=== PATIENT | female | born 1980 | race Caucasian/White ===

== ENCOUNTER 2025-04-13 22:15 | Emergency (ER) | payer OTHER, SELFPAY ==
[2025-04-13 22:17] VITALS: BP 199/109
[2025-04-13 22:37] LABS: Hematocrit 44.0 % (37.0-47.0); Hemoglobin 14.8 g/dL (12.0-16.0); Mean Corp Hgb Conc. 33.6 g/dL (33.0-37.0); Mean Corpuscular Volume 81.3 fL (81.0-99.0); Nucleated Red Blood Cells % 0 %; Platelet Count 400 10^3/uL (130-400); Red Cell Dist. Width 13.1 % (11.5-14.5)
[2025-04-13 22:46] LABS: HCG, Serum Qualitative Screen Negative
[2025-04-13 22:51] LABS: ALT (SGPT) 19 U/L (0-35); AST (SGOT) 21 U/L (14-36); Albumin 5.1 g/dl (3.5-5.0); Alkaline Phosphatase 64 U/L (38-126); Blood Urea Nitrogen 16 mg/dl (7-17); Calcium 10.9 mg/dl (8.4-10.2); Carbon Dioxide 23 mmol/L (22-30); Chloride 106 mmol/L (98-107); Glucose 102 mg/dl (70-99); Potassium 4.1 mmol/L (3.5-5.1); Sodium 137 mmol/L (135-145); Total Protein 8.0 g/dl (6.3-8.2); eGFR > 60.00
[2025-04-13 23:03] LABS: Troponin I < 0.012 ng/ml
[2025-04-13 23:21] VITALS: BP 160/110
[2025-04-13 23:36] VITALS: BMI 29.2
[2025-04-14 00:01] VITALS: BP 160/106
[2025-04-14 01:00] VITALS: BP 151/100
[2025-04-14] MEDS: TYLENOL 650 MG PO (01:42)
[2025-04-14 02:00] VITALS: BP 147/100
[2025-04-14 02:22] LABS: D-Dimer < 0.27 ug/mlFEU (0.00-0.50)
--- NOTE | 2025-04-14 03:50 | ED.GENMED ---
History of Present Illness
General
Chief Complaint: Chest Pain
Source: patient
Time Seen by Provider: 04/13/25 23:25
Nursing documentation reviewed up to this point in time: agreed with
History of Present Illness
History of Present Illness:
Note:
CHIEF COMPLAINT(S)
- Dizziness with a feeling of impending faintness.
- Tremendous swelling in feet and legs.
- Sore and heavy chest feeling upon breathing.
- Burning sensation at the tips of the toes.
- Lingering white coating on the tongue.
HISTORY OF PRESENT ILLNESS
The patient is a 44-year-old female presenting with episodic dizziness, accompanied by a sensation of imminent fainting, which she first experienced over the March 24 holiday while at a [employer] in an air-conditioned space. At that time, she
noted profuse sweating and had to wash her face with water to relieve the symptoms.
Since that incident, she reports 'tremendous' swelling of her feet and legs which lasted several days. She describes persistent tenderness and heaviness in her chest that has recently worsened. This chest discomfort feels gianna to post-exercise
soreness but does not correlate with breathing difficulty. The episodes began around the 24 of March, subsided, and have since recurred in the last few days.
There is also a history of persistent white and fur-like coating on her tongue, for which eradication attempts have been unsuccessful despite her previous antibiotic use. Notably, she denies fever at present but recalls periodic fevers and describes
burning of her toes as another troubling symptom. She has a known history of asthma, typically exacerbating with exercise or environmental changes, but has intermittently used her inhaler more frequently since March 24 due to breathing issues.
The patient also mentions a speculative concern about a possible infection transmitted from her dogs prior staphylococcal infection.
PHYSICAL EXAM
General: Alert, no acute distress.
Skin: Warm, dry.
Head: Normocephalic, atraumatic.
Neck: Supple, trachea midline.
Eye, Ears, Nose, Mouth, and Throat: Oral mucosa moist, with a noted white coating on the tongue.
Cardiovascular: Normal peripheral perfusion, No edema.
Respiratory: Respirations are non-labored.
Gastrointestinal: Abdomen nondistended.
Back: Normal range of motion, Normal alignment.
Musculoskeletal: Normal range of motion, normal strength.
Neurological: Alert and oriented to person, place, time, and situation, No focal neurological deficit observed.
Psychiatric: Cooperative, appropriate mood & affect.
PLAN
The patient is to undergo a D-dimer test to assess the likelihood of a blood clot, with results pending.
DIFFERENTIAL DIAGNOSIS
The Differential Diagnosis includes, in no particular order and is not limited to:
- Hypotension-induced dizziness
- Peripheral edema of unknown etiology
- Asthma exacerbation
- Glossitis or oral candidiasis
- Bronchitis
- Pulmonary embolism
- Heart failure
- Staphylococcal infection
- Vasovagal syncope
- Electrolyte imbalance
CARE-UPDATE
04/14/25 - 03:02
Patient was reassessed, and test results were reviewed. Blood clot test, troponin, and other labs are normal, suggesting the issue is unlikely related to a blood clot, heart problem, systemic infection, or electrolyte imbalance. Symptoms might be
attributable to RA. Patient reports difficulty taking deep breaths. A one-time dose of a medication (presumably a steroid) was administered, with instructions for a wash and spit technique. A prescription for a continuation of this treatment will be
provided if effective, and the patient does not require a new puffer prescription as they already have one.
Disposition:
SUMMARY OF ENCOUNTER
The patient, a 34-year-old female, presented with chest pain and several other complaints, including a white coating on her tongue consistent with thrush. She reported some relief from the chest pain with the use of her inhaler. Chest X-ray and EKG
results were negative, and lab work was essentially normal. A D-dimer test ruled out blood clots, allowing for a low-risk assessment for this condition.
DISPOSITION
Discharged to home.
ASSESSMENT
The patient presents with symptoms suggestive of thrush and chest pain, which may be attributed to possible asthma exacerbation. The negative D-dimer test suggests low risk for pulmonary embolism.
PLAN
The patient will follow up with her family doctor for further evaluation of chest pain.
INDEPENDENT REVIEW OF LABS AND INTERPRETATION OF TESTS
- My independent review of the chest X-ray is negative for acute findings.
- My independent review of the EKG is normal.
- My independent review of lab work, including D-dimer, indicates a negative result, suggesting low risk for blood clots.
MEDICATION RECONCILIATION
The patient was given a prescription for nystatin for oral thrush treatment.
MEDICAL DECISION MAKING
- Chronic conditions affecting care: asthma.
- DDx list: Hypotension-induced dizziness, Peripheral edema of unknown etiology, Asthma exacerbation, Glossitis or oral candidiasis, Bronchitis, Pulmonary embolism, Heart failure, Staphylococcal infection, Vasovagal syncope, Electrolyte imbalance.
- Data:
- Category 1: Reviewed EKG, radiology study, and lab tests showing negative findings.
- Category 2: Clinical information sourced from patients self-reported symptoms.
- Risk: Prescription medication was prescribed for thrush (nystatin). Consideration of Admission/Observation: Escalation of care including admission/observation was considered given the complexity and risk of the patients presenting complaint, exam
findings, and/or their underlying comorbidities. However, ultimately, I feel the patient is safe for outpatient management with close follow-up. Reasoning: Work-up is reassuring, does not reveal any acute life/organ-threatening processes, patients
symptoms well controlled upon reevaluation, reexamination is reassuring, vitals are stable, patient agreeable with discharge, reliable for follow-up.
DIAGNOSIS
- Oral Candidiasis (Thrush) ICD-10: B37.0
- Chest Pain, unspecified ICD-10: R07.9
Past History
Past History
ED Past Medical History: Asthma, CVA (? 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
ED Past Surgical History: Gynecological (Uterine ablation, Tubel)
Social History
Tobacco: Non-smoker
Alcohol: Occasional
Personal:
Living: with family
Employment: Employed (Self-employed)
Family History
Family History: Other (Noncontributory)
Phy Exam
Physical Exam
Physical Exam:
.
Scores
Heart Score for Chest Pain Patients
STEMI patient?: No
History: Slightly or Non-Suspicious
ECG: Normal
Age: >45 - <65 years
Risk Factors: No Risk Factors
Troponin: </= Normal Limit
Heart Score for Chest Pain Patients: 1
Heart Score Risk: 2.5% MACE over next 6 weeks
Course
Orders/Labs/Results
Orders:
Orders
04/13/25 22:24
Electrocardiogram (*1) Urgent
Reason for Study: Chest Pain
EKG- Treatment ONCE
Test Result ONCE
04/13/25 22:29
Complete Blood Count/With Diff Urgent
04/13/25 22:30
Comprehensive Metabolic Panel Urgent
HCG, Serum Qualitative Screen Urgent
NT-proBNP Urgent
Troponin I Urgent
04/13/25 23:32
Add On - Microbiology Urgent
Tests Added?: ddimer
04/14/25 01:02
D-Dimer Urgent
04/14/25 01:17
Acetaminophen [Tylenol] 650 mg PO NOW STA
04/14/25 03:10
CR Chest - 2 Views Urgent
Comment:
Reason For Exam: cp
04/14/25 03:26
Nystatin Suspension [Mycostatin Oral Suspension] 5 ml PO NOW STA
04/14/25 08:00
Nystatin Suspension [Mycostatin Oral Suspension] 5 ml PO QID
Abnormal Lab Results
04/13/25 04/13/25
22:29 22:30
RBC 5.41 H 10^6/uL
(4.20-5.40)
Absolute Monos (auto) 0.9 H 10^3/uL
(0.1-0.6)
Glucose 102 H mg/dl
(70-99)
Calcium 10.9 H mg/dl
(8.4-10.2)
Albumin 5.1 H g/dl
(3.5-5.0)
04/13/25 22:29
04/13/25 22:30
Vital Signs
Initial and Last Documented VS:
Initial Vital Signs
Temp Pulse Resp BP Pulse Ox
98.3 F 124 20 199/109 98
04/13/25 22:17 04/13/25 22:17 04/13/25 22:17 04/13/25 22:17 04/13/25 22:17
Last Documented Vital Signs
Temp Pulse Resp BP Pulse Ox
98.3 F 87 14 151/99 98
04/13/25 22:17 04/14/25 04:16 04/14/25 04:16 04/14/25 04:16 04/14/25 04:16
*Pulse Oximetry
SaO2: 99
Oxygen Mode of Delivery: Room air
Patient hypoxic: no
*Critical Care Note
Total Time (30-74mins, 75-104mins- exclusive of procedures): Not Applicable
ED Attending Note
-
Portions of this chart may have been created with voice recognition software.� Occasional wrong word or��sound alike� substitutions may have occurred due to the inherent limitations of voice recognition software.
Discharge Plan
Departure
Patient Disposition: Home (Routine Discharge)
Date of Disposition: 04/14/25
Time of Disposition: 03:54
Patient with high blood pressure during this ER visit?: Yes
Condition: Good
Discharge Problem:
Chest pain
Instructions: Chest Pain PCP Follow Up
Prescriptions:
New
nystatin 100,000 unit/mL suspension
1 ml PO QID Qty: 473 0RF
No Action
amlodipine 5 mg Tablet
5 mg PO DAILY
aspirin 81 mg Tablet,Delayed Release (Dr/Ec)
81 mg PO DAILY
ibuprofen 200 mg Tablet
400 mg PO BIDPRN PRN (Reason: mild pain)
albuterol sulfate 90 mcg/actuation Hfa Aerosol Inhaler
1 puff INHALATION R Q4HPRN PRN (Reason: SOB)
Women's Multivitamin 18 mg iron-400 mcg-500 mg Tablet
1 tab PO DAILY
Kvmukhwee-Rvkj-Ooabkte
1 tab PO TID
Referrals:
Rufina Ortega MD [Family Provider, Internal Medicine]
Activity Restrictions/Additional Instructions:
Your prescriptions were sent electronically to the pharmacy that you specified.
Thank You for choosing [facility].
It was a pleasure meeting you and taking part in your care. We hope for your continued healing and wellness.
Please read discharge instructions in their entirety. However, they are for general education and may not describe your exact diagnosis at discharge. Information on your ER visit and medical conditions were discussed with you along with appropriate
follow up information...
If indicated, please take your medications as instructed and indicated on discharge paperwork.
Please schedule a follow up appointment as directed. Call to schedule an appointment
Please return to the emergency department with ANY change in, persisting, or worsening of symptoms. If any of your symptoms do not improve, or persist, or become more severe within 6-12 hours, please return to the emergency department for further
care.
Please return to the emergency department if you develop a headache, neck pain/stiffness, fever greater than 100.4F, chest pain, shortness of breath, persistent nausea, vomiting, slurred speech, difficulty walking, numbness/tingling, weakness, signs
of infection or any other symptoms that are worrisome to you.
If you have any questions or concerns please do not hesitate to call the Hospital at or E-mail me directly at [email or web address]
Interventions
Interventions:
*Risk Screen - Suicide Last Done: 04/13/25 22:21
*General Assessment Last Done: 04/13/25 22:21
*Neglect/Abuse Screening Last Done: 04/13/25 22:21
*ED- Fall Risk Assessment Last Done: 04/13/25 23:36
*ED COVID-19 Vaccine History Last Done: 04/13/25 22:21
*Nursing Disposition Last Done: 04/14/25 04:19
ED- Cardiac Assessment Last Done: 04/14/25 03:35
ED- Pulmonary Assessment Last Done: 04/14/25 03:35
ED-Skin Assessment Last Done: 04/14/25 03:35
Discharge Date and Time
Discharge Date/Time: 04/14/25 04:19
Print Language: TUVALUAN
[2025-04-14] MEDS: MYCOSTATIN ORAL SUSPENSION 5 ML PO (04:15)
[2025-04-14 04:16] VITALS: BP 151/99
== END 2025-04-14 04:19 | disposition home or self-care (01) ==
LOC: EMR 22:15
PROVIDERS: Emergency Medicine; EMERGENCY PHYSICIAN Student in an Organized Health Care Education/Training Program; FAMILY PHYSICIAN Student in an Organized Health Care Education/Training Program
DX: R07.89 Other chest pain (principal); R42 Dizziness and giddiness; J45.909 Unspecified asthma, uncomplicated; I10 Essential (primary) hypertension; F90.9 Attention-deficit hyperactivity disorder, unspecified type; M06.9 Rheumatoid arthritis, unspecified
CPT/HCPCS: 99283; 71046; 80053; 83880; 84484; 84703; 85025; 85379; 93005

== ENCOUNTER → 2025-06-08 14:29 | Outpatient (REF) | payer OTHER, SELFPAY | LOC: RAD 14:29 | PROVIDERS: ATTENDING PHYSICIAN Student in an Organized Health Care Education/Training Program; FAMILY PHYSICIAN Student in an Organized Health Care Education/Training Program | DX: I73.00 Raynaud's syndrome without gangrene (principal); K14.8 Other diseases of tongue; L60.9 Nail disorder, unspecified; L97.509 Non-pressure chronic ulcer of other part of unspecified foot with unspecified severity; M05.20 Rheumatoid vasculitis with rheumatoid arthritis of unspecified site; M25.60 Stiffness of unspecified joint, not elsewhere classified; M54.2 Cervicalgia; M79.641 Pain in right hand; M79.642 Pain in left hand; M79.671 Pain in right foot; M79.672 Pain in left foot; Z83.2 Family history of diseases of the blood and blood-forming organs and certain disorders involving the immune mechanism | CPT/HCPCS: 72110; 72200; 73120; 73630 ==

== ENCOUNTER → 2025-06-26 13:59 | Outpatient (REF) | payer OTHER, SELFPAY | LOC: RCS 13:59 | PROVIDERS: ATTENDING PHYSICIAN Student in an Organized Health Care Education/Training Program | DX: R07.89 Other chest pain (principal) | CPT/HCPCS: 93306 ==

== ENCOUNTER → 2025-07-18 09:29 | Outpatient (REF) | payer OTHER, SELFPAY | LOC: PAVMRI 09:29 | PROVIDERS: ATTENDING PHYSICIAN Student in an Organized Health Care Education/Training Program | DX: R29.810 Facial weakness (principal) | CPT/HCPCS: 70551 ==

== ENCOUNTER → 2025-08-08 11:27 | Outpatient (REF) | payer OTHER, SELFPAY | LOC: HWRAD 11:27 | PROVIDERS: ATTENDING PHYSICIAN Student in an Organized Health Care Education/Training Program | DX: R59.0 Localized enlarged lymph nodes (principal) | CPT/HCPCS: 76536 ==